=== PATIENT | female | born 1980 | race Caucasian/White ===

== ENCOUNTER 2023-12-26 09:50 | Inpatient (IN) | payer OTHER ==
[2023-12-26] MEDS: ELECTROLYTE-148 SOLN 1,000 ML IV SCH (10:30)
[2023-12-26 11:16] VITALS: BMI 26.9
[2023-12-26] MEDS ORDERED: BENZOCAINE 28 GM HEMORRHOIDAL OINTMENT TP PRN (15:01)
[2023-12-26] MEDS ORDERED: BENZOCAINE 20% 57 GM BOTTLE TP PRN (15:01)
[2023-12-26] MEDS ORDERED: WITCH HAZEL 50% (TUCKS) 40 PAD/JAR PAD TP PRN (15:01)
[2023-12-26] MEDS ORDERED: METHYLERGONOVINE MALEATE 0.2 MG/1 ML AMP IM PRN (15:01)
[2023-12-26] MEDS ORDERED: OXYTOCIN 20 UNITS in 0.9% NS 20 UNIT/1,000 ML INFUS.BAG IV ONE (15:02)
[2023-12-26] MEDS: IBUPROFEN 800 MG/8 ML IJ IVPB PRN (20:37)
[2023-12-26] MEDS: SIMETHICONE 80 MG TAB.CHEW (FP) PO PRN (20:38)
[2023-12-27] MEDS: OXYTOCIN 20 UNITS in 0.9% NS 20 UNIT/1,000 ML INFUS.BAG IV SCH (01:35)
[2023-12-27] MEDS: ACETAMINOPHEN 325 MG TABLET (FP) PO PRN (02:46)
[2023-12-27] MEDS ORDERED: oxyCODONE HCL 5 MG TABLET PO PRN (03:02)
[2023-12-27 08:27] LABS: BASO % 0.2 % (0-2.0); EOS % 0.2 % (0-4.5); HEMATOCRIT 32.8 % (32.4-45.2); HEMOGLOBIN 10.8 GM/dL (10.7-15.3); LYMPH % 20.8 % (8-40); MCH 30.4 pg (25.7-33.7); MCHC 32.9 g/dl (32.0-36.0); MEAN CELL VOLUME 92.4 fl (80-96); MEAN PLT VOLUME 7.8 fl (7.5-11.1); MONO % 9.8 % (3.8-10.2); PLATELET COUNT 204 10^3/uL (134-434); RBC 3.55 M/mm3 (3.60-5.2); RDW 13.1 % (11.6-15.6); WHITE BLOOD COUNT 11.7 K/mm3 (4.0-10.0)
[2023-12-27] MEDS: PRENATAL VITAMINS W/ FOLIC ACID TABLET (FP) PO SCH (10:26)
[2023-12-27] MEDS: IBUPROFEN 600 MG TABLET (FP) PO PRN (10:26)
[2023-12-27] MEDS ORDERED: BISACODYL 10 MG SUPP.RECT RC PRN (15:02)
[2023-12-27] MEDS: oxyCODONE HCL 5 MG TABLET PO PRN (17:03)
[2023-12-27] MEDS: ONDANSETRON 4 MG TABLET PO PRN (18:10)
[2023-12-28] MEDS ORDERED: ACETAMINOPHEN 325 MG TABLET (FP) PO PRN (09:51)
[2023-12-28] MEDS ORDERED: oxyCODONE HCL 5 MG TABLET PO PRN (09:51)
[2023-12-28] MEDS ORDERED: ACETAMINOPHEN 500 MG TABLET (FP) PO PRN (09:52)
[2023-12-28] MEDS: IBUPROFEN 600 MG TABLET (FP) PO SCH (13:24)
[2023-12-28] MEDS: oxyCODONE HCL 5 MG TABLET PO PRN (14:34)
[2023-12-29 08:00] LABS: BASO % 0.4 % (0-2.0); EOS % 2.6 % (0-4.5); HEMOGLOBIN 10.6 GM/dL (10.7-15.3); LYMPH % 31.3 % (8-40); MCH 31.6 pg (25.7-33.7); MCHC 34.3 g/dl (32.0-36.0); MEAN CELL VOLUME 92.2 fl (80-96); MEAN PLT VOLUME 7.6 fl (7.5-11.1); MONO % 9.1 % (3.8-10.2); NEUT % 56.6 % (42.8-82.8); PLATELET COUNT 203 10^3/uL (134-434); RBC 3.36 M/mm3 (3.60-5.2); RDW 13.3 % (11.6-15.6); WHITE BLOOD COUNT 6.9 K/mm3 (4.0-10.0)
[2023-12-29 11:30] VITALS: RESP 18
[2023-12-30 09:13] VITALS: BP 104/61; PULSE 69; TEMP 98.3
== END 2023-12-30 12:34 | disposition home or self-care (01) | DRG 788 ==
LOC: JLDR 09:50 → J3W 17:10
PROVIDERS: ADMIT Obstetrics & Gynecology; ATTEND Obstetrics & Gynecology
PROC: 10D00Z1 Extraction of Products of Conception, Low, Open Approach (ICD-10-PCS; principal; 2023-12-26)
DX: O80 Encounter for full-term uncomplicated delivery (principal); Z3A.39 39 weeks gestation of pregnancy; Z37.0 Single live birth
CPT/HCPCS: 36415; 85025; 88307-TC